=== PATIENT | male | born 1950 | race Caucasian/White ===

== ENCOUNTER 2018-02-18 15:01 | Emergency (ER) | payer MEDICARE, BC ==
[2018-02-18] MEDS ORDERED: Acetaminophen 325 MG TAB ONE (15:22)
--- NOTE | 2018-02-18 16:12 | CT ---
CT THORACIC SPINE NONCONTRAST: Date: 02/18/18 HISTORY: Fall. Back pain. FINDINGS: Vertebral body height and alignment of the thoracic spine are intact. Osteophytosis is present throug hout the vertebral bodies and facets. Small hiatal hernia is partially visualized. The inferior aspect of the sagittal reformatted images show compression fracture of the superior gabriel in of the L1 vertebral body. IMPRESSION: 1. Degenerative changes of thoracic spine. 2. Partially visualized L1 compression fracture. Please see separate report for CT lumbar spine. POS: [facility]
--- NOTE | 2018-02-18 16:22 | CT ---
LUMBAR SPINE CT NONCONTRAST: CLINICAL HISTORY: Fall with injury and pain. FINDINGS: There is a mild superior end plate compression fracture of L1. This disrupts the anterior cortex of the superior aspect of the L1 vertebral body, as well. No significant retropulsion of bone. There i s degenerative change most notable at the L5-S1 level. Mild gas-vacuum phenomenon is present at this region. Incidental note of mild vascular calcification of the aorta. 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 IMPRESSION: 1. Mild superior end plate compression fracture of L1. 2. Incidental note of bilateral pars defects of L5. POS: [facility]
== END 2018-02-18 16:40 | disposition home or self-care (01) ==
LOC: SCSER 15:01
DX: S32.010A Wedge compression fracture of first lumbar vertebra, initial encounter for closed fracture (principal); E78.5 Hyperlipidemia, unspecified; E66.9 Obesity, unspecified; F32.9 Major depressive disorder, single episode, unspecified; Z79.899 Other long term (current) drug therapy; W11.XXXA Fall on and from ladder, initial encounter
CPT/HCPCS: 72128; 72131

== ENCOUNTER 2018-06-02 23:13 | Emergency (ER) | payer MEDICARE, BC ==
[2018-06-03] MEDS ORDERED: Cephalexin 500 MG CAP ONE (02:05)
--- NOTE | 2018-06-03 10:02 | ULT ---
PRELIMINARY REPORT/[facility]/EMERGENTY AFTER-HOURS PROCEDURE EXAM: US Duplex Left Lower Extremity Veins CLINICAL HISTORY: 68 years old, male; Pain and signs and symptoms; Edema, localized; Lower extremity, left; Leg, lower; Patient HX: Lle pain/edema/redness. Recent plane ride to [place]. TECHNIQUE: Real-time duplex ultrasound scan of the left lower extremity veins integrating B-mode two dimensional vascular structure, Doppler spectral analysis, color flow Doppler imaging and compression. COMPARISON: No relevant prior studies available. FINDINGS: Deep veins: Normal. No DVT in the visualized common femoral, femoral, proximal deep femoral or poplit eal veins. The veins demonstrate normal color flow, are normally compressible, with normal phasic leandra w and/or augmentation response. Superficial veins: Normal. No thrombus in the visualized great saphenous vein. Soft tissues: No acute findings. No popliteal cyst. IMPRESSION: Normal left lower extremity duplex venous ultrasound. Thank you for allowing us to participate in the care of your patient. Dictated and Authenticated by: Aris Bass MD 06/03/2018 2:57 AM Central Time ([place] & [place]) FINAL REPORT EMERGENCY AFTER HOURS EXAM LEFT LOWER EXTREMITY VENOUS DUPLEX ULTRASOUND INCLUDING COLOR AND SPECTRAL DOPPLER IMAGING: Date: 06/03/18 Time: 0119 hours TECHNIQUE: Exam performed from groin to ankle including visualized greater saphenous, common femoral, superficia l femoral, profunda femoral, popliteal, trifurcation, and posterior tibial vein regions. FINDINGS: Phasic flow noted at all levels with normal compressibility and normal augmentation. No evidence for deep venous thrombosis. Report in agreement with preliminary report given on-call by Anthony. POS: [facility]
== END 2018-06-03 02:18 | disposition home or self-care (01) ==
LOC: SCSER 23:13
DX: L03.116 Cellulitis of left lower limb (principal); E78.5 Hyperlipidemia, unspecified; F32.9 Major depressive disorder, single episode, unspecified; E66.9 Obesity, unspecified; Z79.82 Long term (current) use of aspirin; Z79.899 Other long term (current) drug therapy

== ENCOUNTER 2024-10-05 14:23 | Outpatient (CLI) | payer MEDICARE, BC | END 2024-10-05 14:24 | disposition home or self-care (01) | LOC: CT 14:23 | PROVIDERS: ATTEND Orthopaedic Surgery | DX: M17.12 Unilateral primary osteoarthritis, left knee (principal); M25.462 Effusion, left knee ==

== ENCOUNTER 2024-10-09 09:04 | Outpatient (CLI) | payer MEDICARE, BC ==
[2024-10-09 10:47] LABS: #Basophils 0.03 10x3/uL (0.0-0.2); %Basophils 0.4 % (0.0-1.0); %Eosinophils 3.5 % (0.0-10.0); %Lymphocytes 25.3 % (21.0-51.0); %Monocytes 7.5 % (0.0-10.0); Hematocrit 43.1 % (42.0-52.0); Hemoglobin 14.9 g/dL (14.0-18.0); Mean Corpuscular HGB CONC 34.6 g/dL (32.0-36.0); Mean Corpuscular Hemoglobin 32.5 pg (27.0-31.0); Mean Corpuscular Volume 93.9 fL (78.0-98.0); Mean Platelet Volume 11.7 fL (7.4-10.4); Platelet Count 235 10x3/uL (130-400); RBC Distribution Width 14.3 % (11.5-14.5); Red Blood Cell (RBC) Count 4.59 mill/uL (4.70-6.10)
[2024-10-09 11:11] LABS: Anion Gap 13 mmol/L (10-20); BUN (Urea Nitrogen) 15 mg/dL (8.4-25.7); Calc. Creatinine Clearance 0 mL/min (70-130); Calcium 8.9 mg/dL (7.8-10.44); Carbon Dioxide 23 mmol/L (23-31); Chloride 108 mmol/L (98-107); Estimated GFR 91; Glucose 150 mg/dL (83-110); Sodium 140 mmol/L (136-145)
[2024-10-09 11:48] LABS: INR-International Normal Ratio 1.1; Prothrombin Time 14.2 sec (12.0-14.7)
== END 2024-10-09 09:05 | disposition home or self-care (01) ==
LOC: LABBT 09:04
PROVIDERS: ATTEND Orthopaedic Surgery
DX: Z01.818 Encounter for other preprocedural examination (principal); M17.12 Unilateral primary osteoarthritis, left knee; R00.1 Bradycardia, unspecified
CPT/HCPCS: 80048; 85025; 85610; 87081; 93005; 93010

== ENCOUNTER 2024-10-17 09:22 | Day surgery (SDC) | payer MEDICARE, BC ==
[2024-10-09 09:26] VITALS: BMI 36.6
[2024-10-17] MEDS ORDERED: Tranexamic Acid 1,000 MG/10 ML VIAL ONE (10:07)
[2024-10-17] MEDS ORDERED: CEFAZOLIN 2 GM VIAL ONE (10:07)
[2024-10-17] MEDS ORDERED: Sodium Chloride 0.9% 100 ML ONE (10:12)
[2024-10-17] MEDS ORDERED: fentaNYL 50 mcg/mL 1 mL Vial ONE (11:18)
[2024-10-17] MEDS ORDERED: Ropivacaine 0.5% HCl/PF (150 MG/30 ML VIAL) ONE (11:18)
[2024-10-17] MEDS ORDERED: Midazolam HCl 2 mg/2 ml Vial ONE (11:18)
[2024-10-17] MEDS ORDERED: HYDROcodone/Acetaminophen 10/325 mg Tablet PO PRN ×2 (12:15)
[2024-10-17] MEDS ORDERED: Promethazine HCl 25 MG/ML VIAL IM PRN (12:15)
[2024-10-17] MEDS ORDERED: Ondansetron PF 4 MG/2 ML Vial IVP PRN (12:15)
[2024-10-17] MEDS ORDERED: Zolpidem Tartrate 5 MG TAB PO PRN (12:15)
[2024-10-17] MEDS ORDERED: fentaNYL 50 mcg/mL 1 mL Vial SLOW IVP PRN (12:15)
[2024-10-17] MEDS ORDERED: Ropivacaine 0.2% 550 ML 550 ML NERVE BLCK SCH (12:15)
[2024-10-17] MEDS ORDERED: traMADol HCl 50 MG TAB PO PRN (12:15)
[2024-10-17] MEDS ORDERED: Bupivacaine PF 0.5% 30 ML VIAL ONE (12:16)
[2024-10-17] MEDS ORDERED: EPINEPHrine 1 MG/ML VIAL ONE (12:16)
[2024-10-17] MEDS ORDERED: Lidocaine 1% PF 5 ML VIAL ONE (12:27)
[2024-10-17] MEDS ORDERED: fentaNYL PF 100 MCG/2 ML SYRINGE ONE ×2 (12:27→12:52)
[2024-10-17] MEDS ORDERED: PROPOFOL 20 ML ONE ×2 (12:27→12:50)
[2024-10-17] MEDS ORDERED: Dexamethasone 4 mg/ml Vial ONE (12:59)
[2024-10-17] MEDS ORDERED: Ondansetron PF 4 MG/2 ML Vial ONE (12:59)
[2024-10-17] MEDS ORDERED: Glycopyrrolate 0.2 MG/ML 5 ML SYRINGE ONE (13:03)
[2024-10-17] MEDS ORDERED: Fentanyl 250 MCG/5 ML VIAL ONE (14:23)
[2024-10-17] MEDS ORDERED: HYDROmorphone 0.5 MG/0.5 ML SYRINGE ONE ×3 (14:30→14:56)
[2024-10-17] MEDS ORDERED: diphenhydrAMINE 25 MG CAP PO PRN (14:51)
[2024-10-17] MEDS ORDERED: Ketorolac Tromethamine 30 MG (1 mL) VIAL ONE (15:04)
[2024-10-17] MEDS: Vancomycin (BATCH) 2 GM in Premix 1 BAG IVPB SCH (15:49)
[2024-10-17] MEDS: Sodium Chloride 0.9% 1,000 ML IV SCH (17:54)
[2024-10-17] MEDS: CEFAZOLIN 2 GM in Sodium Chloride 0.9% 100 ML IVPB SCH (17:59)
[2024-10-17] MEDS: Ketorolac Tromethamine 30 MG (1 mL) VIAL IVP SCH (18:00)
[2024-10-17] MEDS: traMADol HCl 50 MG TAB PO PRN (18:03)
[2024-10-17] MEDS: Senokot S 8.6-50 MG TAB PO SCH (20:18)
[2024-10-17] MEDS: Atorvastatin Calcium 40 MG TAB PO SCH (20:18)
[2024-10-17] MEDS: Ferrous Gluconate 324 MG TAB PO SCH (20:18)
[2024-10-17] MEDS: Flecainide 50 MG TAB PO SCH (20:18)
[2024-10-18 06:06] LABS: Hematocrit 35.2 % (42.0-52.0); Hemoglobin 12.1 g/dL (14.0-18.0); Mean Corpuscular HGB CONC 34.4 g/dL (32.0-36.0); Mean Corpuscular Volume 95.9 fL (78.0-98.0); Mean Platelet Volume 10.9 fL (7.4-10.4); Platelet Count 239 10x3/uL (130-400); RBC Distribution Width 14.6 % (11.5-14.5); Red Blood Cell (RBC) Count 3.67 mill/uL (4.70-6.10)
[2024-10-18] MEDS: Metoprolol Tartrate 25 MG TAB PO SCH (08:46)
[2024-10-18] MEDS: metFORMIN 500 MG TAB PO SCH (08:46)
[2024-10-18] MEDS: Apixaban 5 MG TAB PO SCH (08:46)
[2024-10-18] MEDS: Pantoprazole DR 40 MG TAB PO SCH (08:47)
[2024-10-18] MEDS: Multivitamin W/ Minerals 1 TAB PO SCH (08:47)
[2024-10-18 08:54] VITALS: TEMP 98.3
[2024-10-18] MEDS ORDERED: MULTIVITAMIN PO SCH (09:00)
[2024-10-18] MEDS ORDERED: Vilazodone Hcl [Viibryd] 40 MG Tablet PO SCH (09:00)
[2024-10-18] MEDS: Acetaminophen 325 MG TAB PO PRN (12:09)
[2024-10-18 12:54] VITALS: BP 130/78
[2024-10-19] MEDS ORDERED: FLU (Fluad Triv) TS24-25 (65UP)/MF59C/PF 45 MCG/0.5 ML Syringe IM ONE (09:00)
== END 2024-10-18 16:15 | disposition home or self-care (01) ==
LOC: SDC 09:22 → SURG A 12:43 → SDC 10-18 16:15
PROVIDERS: ATTEND Orthopaedic Surgery
PROC: 0SRD0JZ Replacement of Left Knee Joint with Synthetic Substitute, Open Approach (ICD-10-PCS; principal; 2024-10-17)
PROC: 3E0T3BZ Introduction of Anesthetic Agent into Peripheral Nerves and Plexi, Percutaneous Approach (ICD-10-PCS; 2024-10-17)
DX: M17.12 Unilateral primary osteoarthritis, left knee (principal); E78.5 Hyperlipidemia, unspecified; N40.0 Benign prostatic hyperplasia without lower urinary tract symptoms; F90.9 Attention-deficit hyperactivity disorder, unspecified type; I48.91 Unspecified atrial fibrillation; Z98.890 Other specified postprocedural states; Z79.899 Other long term (current) drug therapy
CPT/HCPCS: 0055T; 27447; 64448; 36415; 85027; A4306; C1713; C1776; C1889; J0171; J0665; J1100; J1885; J2250; J2405; J2704; J2795; J3010; J3370